=== PATIENT | female | born 1980 | race Caucasian/White ===

== ENCOUNTER 2021-02-06 02:17 | Emergency (ER) | payer OTHER ==
[~2021-02-06] VITALS: Ht 172.7 cm; Wt 64.9 kg
[2021-02-06 02:23] VITALS: BP 136/91
--- NOTE | 2021-02-06 02:30 | NUR ---
40 y/o female bib boyfriend for alcohol/drug intoxication. Per boyfriend, "She was doing fine and I thought she was falling asleep. Her friends told me that she was taking liquid xanax and might have had some alcohol." A/o x1; GCS 11; arousable to pain. +WEKANESS AND LETHARGY. 3-4MM PERRLA BRISK. +SNROING. NO RESP DISTRESS NOTED. LUNG SOUNDS CLEAR ALL THROUGHOUT. SPO2 1005 RA. VSS. SIDE RAILS UP X2. BED LOCKED IN PLACE AT THE LOWEST POSITION. CALL LIGHT WITHIN REACH. PMH: UNOBTAINABLE. allergies: UNOBTAINABLE.
--- NOTE | 2021-02-06 03:00 | NUR ---
Patient being evaluated by physician at bedside.
[2021-02-06 03:25] LABS: BASOPHILS # (AUTO) 0.1 K/uL (0.00-0.22); BASOPHILS % (AUTO) 0.7 % (0.0-2.0); EOSINOPHILS % (AUTO) 0.5 % (0.0-4.0); HEMOGLOBIN 11.6 g/dL (12.0-16.0); LYMPHOCYTES # (AUTO) 2.1 K/uL (2.5-16.5); LYMPHOCYTES % (AUTO) 30.1 % (20.5-51.1); MEAN CORPUSCULAR HEMOGLOBIN 29 pg (27-31); MEAN CORPUSCULAR HGB CONC 33 g/dL (33-37); MEAN CORPUSCULAR VOLUME 87.9 fL (80-94); MONOCYTES # (AUTO) 0.5 K/uL (0.8-1.0); MONOCYTES % (AUTO) 6.7 % (1.7-9.3); NEUTROPHILS # (AUTO) 4.3 K/uL (1.8-7.7); PLATELET COUNT (AUTO) 318 K/uL (140-450); RED BLOOD CELL COUNT(AUTO) 3.98 MIL/uL (4.20-5.40)
[2021-02-06 03:30] LABS: ANION GAP 11.7 (8-16); ASPARTATE AMINOTRANSFERASE 15 U/L (15-37); CARBON DIOXIDE 26.8 mmol/L (21-32); CHLORIDE 104 mmol/L (98-107); CREATININE 0.7 mg/dL (0.6-1.3); GFR ARICAN-AMERICAN 118 mL/min (>90); GLUCOSE 125 mg/dL (74-106); POTASSIUM 3.5 mmol/L (3.5-5.1); SODIUM SERUM 139 mmol/L (136-145); TOTAL BILIRUBIN 0.2 mg/dL (0.0-1.0); UREA NITROGEN, BLOOD 11 mg/dL (7-18)
[2021-02-06 03:31] LABS: SALICYLATE < 2.8 mg/dL (2.8-20.0)
[2021-02-06 03:32] LABS: ACETAMINOPHEN < 0.5 ug/ml (10-30)
--- NOTE | 2021-02-06 03:55 | NUR ---
PT RETURNED BACK FROM CT VIA [facility].
--- NOTE | 2021-02-06 05:23 | NUR ---
PT PLACED ON 2L NC. SPO2 99%.
--- NOTE | 2021-02-06 05:41 | NUR ---
PT TAKEN TO CT VIA [facility].
--- NOTE | 2021-02-06 05:53 | NUR ---
PT RETURNED BACK FROM CT VIA [facility].
--- NOTE | 2021-02-06 06:10 | NUR ---
REMOVED 2L NC FROM PT. PT IS NOW SATTING AT 100% RA.
--- NOTE | 2021-02-06 07:15 | NUR ---
Pt report given to LAURE DUNBAR. Transfer of care at this time.
--- NOTE | 2021-02-06 07:15 | NUR ---
Report received from LAURE Nava; care assumed.
--- NOTE | 2021-02-06 07:37 | NUR ---
ERMD at the bedside evaluating patient.
[2021-02-06 07:58] VITALS: BP 127/84
--- NOTE | 2021-02-06 07:59 | NUR ---
Patient discharged with v/s stable. Written and verbal after care instructions given and explained. Patient verbalized understanding. Wheel Chair Assisted with by family. All questions addressed prior to discharge. Advised to follow up with PMD.
== END 2021-02-06 07:59 | disposition home or self-care (01) ==
LOC: MED 02:17
DX: R41.82 Altered mental status, unspecified (principal); K30 Functional dyspepsia
CPT/HCPCS: 36415; 70450; 74176; 80053; 84703; 85025; 99285; G0480; G0482